=== PATIENT | male | born 1960 | race Caucasian/White ===

== ENCOUNTER 2019-06-10 07:15 | Day surgery (SDC) | payer OTHER, SELFPAY ==
[2019-06-10] VITALS (12 sets, daily range): BP systolic 113–146; BP diastolic 81–105; PULSE 73–101; RESP 10–19; TEMP 36.4–37.2; O2SAT 93–98; BMI 31.1
--- NOTE | 2019-06-10 08:39 | PM.HP.1 ---
History of Present Illness History of Present Illness Date Patient Seen: 06/10/19 Time Patient Seen: 08:39 Chief complaint: [id number] SCREENING COLONOSCOPY Narrative: Patient is gentleman here for screening colonoscopy. His last exam was 10 years ago. Patient History Medical History (Updated 06/10/19 @ 08:41 by Chris Garcia MD) Chronic back pain (Acute) Essential hypertension with goal blood pressure less than 130/85 (Acute) Sleep apnea (Acute) Surgical History (Updated 06/10/19 @ 08:41 by Chris Garcia MD) History of Thompson fundoplication (Acute) Family & Social History Social History: household members none Tobacco & Substance use: Smoking Status Never smoker alcohol intake frequency holiday/special occasion Substance Use Type does not use Meds Home Medications and Allergies Home Medications Medication Instructions Recorded Confirmed Type Oxycodone/Acetaminophen (Percocet 2 tab PO PRN #0 04/25/11 06/10/19 History 5-325 MG Tablet) omeprazole 2 tabs PO BID #0 04/25/11 06/10/19 History peg 3350-electrolytes 236 240 ml PO Q10M #4000 ml 06/05/19 06/10/19 Rx gram-22.74 gram-6.74 gram-5.86 gram solution Naprosyn 5,000 mg PRN 06/10/19 History lisinopril 10 mg DAILY 06/10/19 06/10/19 History Allergies Allergy/AdvReac Type Severity Reaction Status Date / Time No Known Drug Allergies Allergy Verified 06/10/19 07:58 Review of Systems Review of Systems ROS: Yes All systems reviewed with the patient and are negative except as otherwise documented Musculoskeletal Comments: Chronic back pain Exam Vital Signs (past 8 hours): - 06/10/19 07:49 Temperature 97.9 F Pulse Rate 101 H Respiratory Rate 17 Blood Pressure 146/95 H Pulse Oximetry 93 Oxygen Delivery Method Room Air Narrative Exam Narrative: Pleasant cooperative patient no apparent distress. Lungs are clear to auscultation. No rales or rhonchi. Heart regular rate and rhythm no murmur gallop. Abdomen is soft nontender without mass. Possible upper abdominal hernia in a area of a midline scar. Patient is alert and oriented x3. Assessment & Plan Assessment & Plan narrative: The patient for a screening colonoscopy. I have discussed the procedure with them. Risks of bleeding, perforation which would necessitate major operation, failure to find remove all lesions, the potential tattoo were all discussed. All questions were answered. They wished to proceed.
--- NOTE | 2019-06-10 08:43 | PM.PREOP ---
Pre-operative Note Interval Note History & Physical reviewed/Exam performed by Physician: Yes Changes to H&P: No ASA Class (for procedural sedation): III
[2019-06-10] MEDS: MIDAZOLAM 5 MG/5 ML VIAL IV (08:54)
[2019-06-10] MEDS: fentaNYL 250 MCG/5 ML INJ IV (08:55)
--- NOTE | 2019-06-10 08:55 | PM.OP.ENDO ---
Operative Date/Time/Diagnoses Date of procedure: 06/10/19 Time of procedure: 08:55 Pre-op diagnosis: Screening exam Post-op diagnosis: other (Procedure abandoned due to poor prep) Procedure & Clinicians Study performed: Flexible sigmoidoscopy Same procedure as scheduled: No Indications: Screening. Last exam 10 years ago Surgeon: Chris Garcia Procedure Notes SCOAP/Timeout: Performed Procedure in detail: Patient was placed in left lateral decubitus position underwent IV sedation directed by the surgeon consisting of fentanyl and Versed. Digital exam revealed an odd entrance to his anal canal. Was it a angle. His prostate is mildly enlarged. Scope was inserted and I immediately encountered stool lining the colon. I advanced to about 40 cm and there was no relief insight. It is very clear I was not going to get an adequate exam and therefore I banded the procedure. Patient should have a 2 day prep. Scope withdrawal time: Not applicable Sedation minutes: 8 Specimen(s): none sent Complications: none Post-procedure Recommendations: Other recommendation (Reschedule with a 2 day prep) Follow up: as needed Disposition: PACU
--- NOTE | 2019-06-10 09:33 | SUR.PHASEII ---
Patient denies pain/nausea. Tolerating po. Abdomen no-distended. Patient snoring loudly. Uses CPAP.
[2019-06-10] MEDS: SODIUM CHLORIDE 0.9% 1,000 ML 200 ML IV (09:51)
== END 2019-06-10 10:16 | disposition home or self-care (01) ==
PROVIDERS: PCP Internal Medicine; Referring Provider Specialist; Visit Provider Specialist
PROC: 0DJD8ZZ Inspection of Lower Intestinal Tract, Via Natural or Artificial Opening Endoscopic (ICD-10-PCS; CPT 45378; principal; 2019-06-10 08:45)
DX: Z12.11 Encounter for screening for malignant neoplasm of colon (principal); I10 Essential (primary) hypertension; G47.30 Sleep apnea, unspecified; N40.0 Benign prostatic hyperplasia without lower urinary tract symptoms
CPT/HCPCS: 45330; 99152; J2250; J3010

== ENCOUNTER 2019-10-13 09:14 | Day surgery (SDC) | payer OTHER, SELFPAY ==
[2019-10-13] VITALS (8 sets, daily range): BP systolic 116–159; BP diastolic 84–114; PULSE 73–82; RESP 11–16; TEMP 36.5–36.7; O2SAT 94–96; BMI 31.4
--- NOTE | 2019-10-13 10:08 | PM.HP.1 ---
History of Present Illness History of Present Illness Date Patient Seen: 10/13/19 Time Patient Seen: 10:09 Chief complaint: [id number] SCREENING COLONOSCOPY Narrative: The patient presents for colorectal sreening. They have never had any previous examination for such, he did have previous attempt at a colonoscopy which was aborted secondary day inadequate prep. No personal or family history of colon cancer. On further history denies any recent gastrointestinal symptoms. No nausea, vomiting, abdominal pain, loss of appetite, unexplained weight loss, change in bowel habits, diarrhea, constipation, melena, hematochezia, or bright red blood per rectum. Patient History Medical History Chronic back pain (Acute) Essential hypertension with goal blood pressure less than 130/85 (Acute) Sleep apnea (Acute) Surgical History History of Thompson fundoplication (Acute) Family & Social History Social History: household members significant other Tobacco & Substance use: Smoking Status Never smoker alcohol intake current alcohol intake frequency holiday/special occasion Substance Use Type does not use Meds Home Medications and Allergies Home Medications Medication Instructions Recorded Confirmed Type Oxycodone/Acetaminophen (Percocet 2 tab PO PRN #0 04/25/11 10/13/19 History 5-325 MG Tablet) Naprosyn 5,000 mg PO Q12HR 06/10/19 10/13/19 History lisinopril 10 mg DAILY 06/10/19 10/13/19 History cyclobenzaprine 10 mg PO TID PRN 10/13/19 10/13/19 History duloxetine 60 mg PO DAILY 10/13/19 10/13/19 History pantoprazole 40 mg PO BID 10/13/19 10/13/19 History sumatriptan succinate 25 mg PO Q2-4H PRN 10/13/19 10/13/19 History Allergies Allergy/AdvReac Type Severity Reaction Status Date / Time No Known Drug Allergies Allergy Verified 10/13/19 09:22 Review of Systems Review of Systems Narrative: A 10 point review of systems is negative except as noted in the HPI Exam Vital Signs (past 8 hours): - 10/13/19 09:31 Temperature 97.7 F Pulse Rate 82 Respiratory Rate 16 Blood Pressure 145/96 H Pulse Oximetry 96 Oxygen Delivery Method Room Air Narrative Exam Narrative: General-no acute distress, well nourished HEENT-moist mucous membranes, no scleral icterus Neck-supple, no lymphadenopathy Chest- non labored respirations, clear to auscultation bilaterally Cardiac-regular rate no peripheral edema Abdomen-soft, nontender, non distended Extremities-warm, well perfused Neurological-alert and oriented, no focal deficits Assessment & Plan Assessment and plan (1) Screening for colon cancer: Status: Acute Assessment & Plan narrative: The patient requires colorectal screening and colonoscopy is recommended. Technical details were discussed. Risks, benefits, alternatives explained. Risks including but not limited to myocardial infarction, aspiration, bleeding, pain, missed lesion, incomplete examination, need for further radiographic studies, colonic perforation, and need for major abdominal surgery were discussed. All questions were answered to their satisfaction, and they are in agreement with this plan. COVID-19 COVID-19 status: Result pending
[2019-10-13 10:20] LABS: COVID19 -Nasal RAPID Negative (Negative)
[2019-10-13] MEDS: MIDAZOLAM 5 MG/5 ML VIAL IV ×3 (10:26→10:35)
[2019-10-13] MEDS: fentaNYL 250 MCG/5 ML INJ IV ×3 (10:26→10:35)
[2019-10-13] MEDS: LABETALOL 20 MG/4 ML SYRINGE 5 MG IV (10:45)
--- NOTE | 2019-10-13 10:52 | PM.OP.ENDO ---
Operative Date/Time/Diagnoses Date of procedure: 10/13/19 Time of procedure: 10:52 Pre-op diagnosis: Screening colonoscopy Post-op diagnosis: same Procedure & Clinicians Study performed: Colonoscopy Same procedure as scheduled: Yes Indications: 59-year-old male no prior colonoscopy presents for routine screening Surgeon: Salty Francisco Procedure Notes SCOAP/Timeout: Performed Procedure in detail: Patient placed in left lateral decubitus position. Time out was performed. Procedural sedation was administered with Versed and Fentanyl. A rectal exam demonstrated no external hemorrhoids no internal masses. Colonoscopy scope was placed into the rectum and advanced through the colon to the cecum. The ileocecal valve was identified. The scope was then slowly withdrawn examining colon thoroughly in all directions. The colonoscopy was notable for the following 1. No masses polyps 2. Extensive saleh diverticulosis 3. Quality of prep poor Scope withdrawal time: 6 Sedation minutes: 26 Findings: diverticulosis Specimen(s): none sent Impression: Saleh diverticulosis Post-procedure Recommendations: Colonscopy in 10 years Disposition: same day surgery
== END 2019-10-13 11:37 | disposition home or self-care (01) ==
PROVIDERS: PCP Internal Medicine; Referring Provider Surgery; Visit Provider Surgery
PROC: 0DJD8ZZ Inspection of Lower Intestinal Tract, Via Natural or Artificial Opening Endoscopic (ICD-10-PCS; CPT 45378; principal; 2019-10-13 10:00)
DX: Z12.11 Encounter for screening for malignant neoplasm of colon (principal); I10 Essential (primary) hypertension; G47.30 Sleep apnea, unspecified; G89.29 Other chronic pain; K57.30 Diverticulosis of large intestine without perforation or abscess without bleeding
CPT/HCPCS: 45378; 87635; 99152; 99153; J2250; J3010

== ENCOUNTER → 2020-04-19 13:35 | Outpatient (CLI) | payer OTHER, SELFPAY ==
--- NOTE | 2020-04-19 | DI.MRI.S_ITS ---
PROCEDURE: MR KNEE LT WO CON INDICATIONS: Bilateral primary osteoarthritis of knee TECHNIQUE: Noncontrast sagittal PD fast spin echo and T2 fast spin echo with fat saturation, sagittal 3-D FLASH with fat saturation; coronal T1 spin echo and PD fast spin echo with fat saturation, and axial PD fast spin echo with fat saturation through the knee. COMPARISON: [facility], MR, MR KNEE LEFT WITHOUT CONTRAST, 10/30/2017, 15:42. FINDINGS: Image quality: Excellent. Menisci: Macerated circumferential medial meniscal tear involving the anterior horn body and posterior horn. There is partial extrusion. There is adjacent multiloculated appearing parameniscal cyst measuring approximately 1.4 x 0.8 cm image /. Lateral meniscus intact. Cruciate ligaments: Anterior cruciate ligament appears intact. Posterior cruciate ligament appears intact. Medial structures: There is medial bowing of the medial collateral ligament, with mild internal signal changes and no complete rupture. There is adjacent soft tissue edema. The appearance could reflect reactive changes to medial compartment pathology, versus low-grade sprain of the MCL. Pes anserinus tendons appear grossly unremarkable. Semimembranosus tendon appears intact. Lateral structures: The lateral collateral ligament demonstrates thickening and intrasubstance signal change in keeping with low grade sprain, statistically chronic, although technically age indeterminate. Biceps femoris tendon appears intact. Popliteus tendon grossly unremarkable. Iliotibial band appears intact. . Anterior structures: Quadriceps tendon distal tendinopathy and thickening. Medial and lateral patellofemoral ligaments intact. There is mild patellar tendinopathy. Prepatellar and superficial infrapatellar subcutaneous edema/fluid. Bones and cartilage: No focal marrow contusion or discrete low signal fracture line. Within the medial compartment, diffuse partial-thickness chondral loss without focal defect. Within the lateral compartment, diffuse partial-thickness loss of the femoral cartilage without focal defect. Within the patellofemoral compartment, full-thickness fissuring of the cartilage overlying the lateral patellar facet with subchondral cystic change and sclerosis. Areas of partial thickness cartilage loss overlying the median patellar ridge and medial patellar facet. Joint space: No joint effusion. No Prather's cyst. No specific evidence of intra-articular loose body. IMPRESSION: Grossly unchanged macerated circumferential medial meniscal tear with partial extrusion. Associated parameniscal cyst measuring 1.4 cm this appears smaller since the prior study from 10/30/17, versus de maida lesion. Adjacent MCL changes as above. Distal quadriceps and patellar tendinopathy. This appears mildly improved since the prior study. Tricompartmental joint degeneration as above. Minimal interval progression in the medial compartment since the prior study. Dictated by: Julian Gonzalez M.D. on 04/19/2020 at 15:31 Approved by: Julian Gonzalez M.D. on 04/19/2020 at 15:51
== END ==
PROVIDERS: PCP Internal Medicine; Referring Provider Internal Medicine; Visit Provider Orthopaedic Surgery
DX: M17.0 Bilateral primary osteoarthritis of knee (principal); S83.242A Other tear of medial meniscus, current injury, left knee, initial encounter
CPT/HCPCS: 73721

== ENCOUNTER → 2021-01-19 11:11 | Outpatient (CLI) | payer OTHER, SELFPAY ==
[2021-01-19 12:46] LABS: COVID19 -Nasal RAPID Negative (Negative)
== END ==
PROVIDERS: PCP Internal Medicine; Visit Provider Nurse Practitioner Family
DX: Z20.822 Contact with and (suspected) exposure to COVID-19 (principal)
CPT/HCPCS: 87635

== ENCOUNTER 2021-01-20 11:50 | Day surgery (SDC) | payer OTHER, SELFPAY ==
[2021-01-18 07:46] VITALS: BMI 33.2
[2021-01-20] VITALS (24 sets, daily range): BP systolic 114–156; BP diastolic 73–112; PULSE 72–114; RESP 12–19; TEMP 36.1–36.7; O2SAT 73–100; BMI 33.2
--- NOTE | 2021-01-20 06:00 | DI.RAD.S_ITS ---
PROCEDURE: XR KNEE LT 1TO2V INDICATIONS: postop prosthesis placement TECHNIQUE: 2 view(s) of the knee acquired. COMPARISON: [facility], CR, XR KNEE 4+ VIEWS LEFT, 11/17/2020, 8:10. FINDINGS: Bones: Patient is status post knee joint arthroplasty. Hardware components are in expected positions. Visualized bony structures are intact. Soft tissues: Overlying postoperative changes are noted. IMPRESSION: Expected immediate postoperative appearance of left knee medial unicondylar arthroplasty. Dictated by: Kash Gamble RRA Interpreted: Valentino Quinn MD on 01/20/2021 at 16:18 Transcribed by: SERA on 01/20/2021 at 16:18 Approved by: Valentino Quinn M.D. on 01/20/2021 at 17:18
--- NOTE | 2021-01-20 11:15 | PM.PREOP ---
Pre-operative Note COVID-19 COVID-19 status: Negative Interval Note History & Physical reviewed/Exam performed by Physician: Yes Changes to H&P: No
[2021-01-20] MEDS: LACTATED RINGERS 1,000 ML 42 ML IV ×2 (12:05→13:41)
[2021-01-20] MEDS: VANCOMYCIN 1,000 MG/200 ML PIGGYBACK 200 MG IV (12:05)
[2021-01-20] MEDS: CELECOXIB 200 MG CAPSULE PO (12:06)
[2021-01-20] MEDS: ACETAMINOPHEN 325 MG TABLET 975 MG PO (12:06)
[2021-01-20] MEDS: PREGABALIN 75 MG CAPSULE PO (12:06)
[2021-01-20] MEDS: CEFAZOLIN 3 GM IN 0.9 % NACL 100 ML IV (12:45)
[2021-01-20] MEDS: BUPIVACAINE 0.25% (PF) 60 ML, EPINEPHrine 0.3 MG INJ (12:52)
[2021-01-20] MEDS: BUPIVACAINE LIPOSOME 266 MG/20 ML VIAL INJ (12:53)
[2021-01-20] MEDS: TRANEXAMIC ACID 1,000 MG VIAL 1000 MG INJ ×2 (12:54→13:48)
--- NOTE | 2021-01-20 12:59 | SUR.OPER ---
Supine on padded OR bed. Pillow under head, arms secured on padded armboards <90 degree abduction. Safety belt across torso. Non-operative leg secured with tape over blanket over lower leg. Operative leg secured in DeMayo/Henry/Nathe positioner. Foam padded brace at thigh of operative leg.
--- NOTE | 2021-01-20 14:32 | P.OP_ITS ---
Operative Date/Time/Diagnoses Date of procedure: 01/20/21 Time of procedure: 12:30 Pre-op diagnosis: Left knee medial compartment arthritis Post-op diagnosis: same Procedure & Clinicians Procedure: Left knee medial unicompartment replacement Same procedure as scheduled: Yes Indications: The patient has had progressively worsening left knee pain with radiographic changes consistent with arthritis. Non-operative management has failed and the patient has requested medial unicompartment knee replacement. The risks, benefits and alternatives to surgery were discussed with the patient prior to proceeding. Risks discussed included, but were not limited to, failure to relieve pain, stiffness, infection, nerve damage, deep venous thrombosis, pu lmonary embolism, stroke, coma, heart attack, permanent paralysis and , as well as the potential need for eventual revision of the prosthetic. Surgeon: Anahy Iglesias Industrial Refrigeration Mechanic: Kaylan Winter Anesthesia Type: General Operative Notes Findings: Severe medial compartment osteoarthritis, fairly normal appearing patellofemoral joint, adequate bone, adequate stability Closure Type: primary Specimen(s): none sent Prosthetic devices, grafts, tissues, transplants, or devices: Journey 2 unicompartment replacement size 7 tibia, size 7 femur, +8 poly Estimated Blood Loss (mL): 250 Blood products transfused: none Tourniquet time (min): 56 Procedure in detail: The patient was seen in the pre-operative area, where the left knee was identified as the operative site and this was marked with my initials. The patient received pre-operative antibiotics, and was taken to the operating room and placed on the operative table in the supine position. After satisfactory anesthesia, a time study technician out was performed. The left leg was encircled with a tourniquet about the proximal thigh, and the leg was prepared from the toes to the tourniquet with ChloroPrep in the usual fashion and draped through sterile drapes. The leg was elevated and exsanguinated with Eschmark bandage and the tourniquet inflated to [250] mmHg pressure. The knee was approached through an approximately 10 cm incision medial parapatella incision and carried into the knee through a medial parapatellar arthrotomy. The osteophytes and medial meniscus were removed. Next, a small amount of the anterior tibial boss was carefully resected with a saw. The guide was placed along the medial joint line. It was meticulously adjusted to make sure there was appropriate slope that it was at the joint line and then was pinned to the tibia and the femur. The medial femoral condylar cut was made in extension. The tibial cut was made in flexion. The bone was meticulously irrigated with normal saline. Small amount of additional meniscus was resected posterior capsule was checked and injected with Marcaine. The extension gap was carefully checked with an 8 mm gap administrator of home health was noted that it fit well. A small number of additional osteophytes were resected. The tibia was a size [7]. It was noted that it fit without overhang. The femur was sized and it was noted to be a [7]. The appropriate cutting guide was pinned into place and carefully positioned on the femoral condyle. Drill holes were placed. The tibia was pinned into place and drill holes were made. Trial reduction with the appropriate poly showed full range of motion and good stability at 0, 45. and 90? with normal tracking of the components without edge loading. The bone was meticulously irrigated and dried. Additional Marcaine was injected. The posterior capsule was injected with 0.25% Marcaine mixed with 20 ml Exparel for post-operative pain control. The remainder of this mixture was injected into the capsule and subcutaneous tissues during cement curing. Range of motion was [0-130], with good stability throughout the range. The trials were then remove. The cement was as applied and the final prosthetics placed. Excess cement was removed during and after cement curing. A brief medial compartment Betadine soak was performed. After confirming there was no extruded cement posteriorly, the final tibial insert was placed. The knee was copiously irrigated and the tourniquet deflated. Hemostasis was obtained. The capsule was closed with interrupted vicryl. The subcutaneous tissue was closed with barbed sutures. The skin with a running 3-0 V-Lock suture and surgical glue. An Aquacel Ag dressing was applied and the patient was taken to recovery having tolerated the procedure well. Complications: none Post-operative Condition: stable Disposition: Acute Care Plan for aftercare: The patient will be maintained on a standard unicompartment knee replacement protocol with weight bearing as tolerated. The patient will receive aspirin and sequential compression devices for DVT prophylaxis. The patient will be discharged home when safe for the home environment.
[2021-01-20] MEDS: KETOROLAC 30 MG/ML VIAL IV (15:01)
[2021-01-20] MEDS: OXYCODONE/ACETAMINOPHEN 5/325 TABLET 1 TAB PO (15:38)
--- NOTE | 2021-01-20 15:59 | SUR.PHASEI ---
Spoke w pt's chosen contact, Angie, to update, her, she's aware he will be admitted and aware we will call her when we have a room.
--- NOTE | 2021-01-20 18:04 | SUR.PHASEI ---
Pt admitted for observation, CPAP in place on 5LO2, VSS, A/O x 4, transported to 211 in stable condition.
[2021-01-20] MEDS: LACTATED RINGERS 1,000 ML 100 ML IV (18:18)
[2021-01-20] MEDS: OXYCODONE IR 10 MG TABLET PO (19:33)
[2021-01-20] MEDS: ASPIRIN EC 81 MG TABLET PO (20:53)
[2021-01-20] MEDS: PANTOPRAZOLE DR 40 MG TABLET PO (20:53)
[2021-01-20] MEDS: ACETAMINOPHEN 325 MG TABLET 650 MG PO (20:53)
[2021-01-20] MEDS: IBUPROFEN 400 MG TABLET PO (20:54)
[2021-01-20] MEDS: DOCUSATE 100 MG CAPSULE PO (20:54)
[2021-01-20] MEDS: CEFAZOLIN 1 GM VIAL 2 GM IV (20:56)
[2021-01-21] VITALS: BP 140/93; PULSE 88; RESP 18; TEMP 37.2; O2SAT 94
[2021-01-21] MEDS: IBUPROFEN 400 MG TABLET PO ×4 (00:46→12:32)
[2021-01-21] MEDS: OXYCODONE IR 5 MG TABLET PO ×4 (01:18→12:32)
--- NOTE | 2021-01-21 01:46 | PC.NURSE ---
Addendum entered by Cassidy Barnett R.N. 01/21/21 02:28: Placed on CPAP with 2L/min oxygen bled in and sat now at 97% Original Note: Patient is alert and oriented. Breath sounds CTA with oxygen at 3.5L/min per NC at start of shift but when asleep sat is dropping down into 80's so is currently at 5L/min with sat of 96%; patient states at home he uses CPAP for sleep with oxygen bled in at 2L/min. Noted CPAP is in room so next time patient is awake with have him put CPAP on. HRR. BP elevated at 140/93 consistent with previous readings. Denied nausea. BT present but denied passing flatus as yet. Is voiding per urinal; denied dysuria, frequency or urgency. Is able to move self in bed. Gait not assessed at this time but per evening RNRakesh, patient is up to bathroom with SBA + walker. Aquacel dressing covered with lima wrap to left knee is CDI. CMS is intact. Is wearing bilateral calf SCD's. At time of assessment patient denied pain but was medicated with scheduled Ibuprofen and then at 0115 patient stated pain had increased to 4/10 so was medicated with oxycodone and is now asleep. Fall risk score is moderate and bed alarm is activated.
[2021-01-21 02:30] VITALS: O2SAT 97
[2021-01-21 04:00] VITALS: BP 129/90; PULSE 86; RESP 19; TEMP 37.4; O2SAT 94
[2021-01-21] MEDS: LACTATED RINGERS 1,000 ML 100 ML IV (04:43)
[2021-01-21] MEDS: CEFAZOLIN 1 GM VIAL 2 GM IV (04:44)
[2021-01-21 06:21] LABS: Hemoglobin 13.6 g/dL (13.5-17.5)
--- NOTE | 2021-01-21 07:44 | PM.DS.1 ---
History of Present Illness History of Present Illness Date Patient Seen: 01/21/21 Time Patient Seen: 07:44 Chief complaint: Left knee pain s/p left medial Uni arthroplasty Narrative: The patient is complaining of qjva-df-[id number] left knee pain this morning. He denies any new numbness or tingling. No fevers, chills, night sweats. No nausea or vomiting. Overall he is feeling well, and like to be discharged home today when he is cleared by PT. Discharge Providers Provider Date of admission: 01/20/21 18:32 Discharge Date: 01/21/21 Primary care physician: Brandy Stahl MD Consults: 01/20/21 06:00 Consult to Anesthesiology Routine Comment: Consulting Provider: Anesthesiologist Reason for consultation: Regional block for post operative pain control 01/20/21 12:10 Consult to Respiratory Therapy Evaluate & Treat Comment: Physician Instructions: Evaluate and treat 01/20/21 18:04 Consult to Discharge Planning Routine Comment: Consult to Physical Therapy Evaluate & Treat Comment: Physician Instructions: postop TKA protocol Consult to Respiratory Therapy Evaluate & Treat Comment: severe sleep apnea Physician Instructions: Evaluate and treat Discharge provider: Kaylan Winter PA-C Summary Hospital Course Discharge Diagnosis: Left knee medial compartment arthritis Hospital Course: Date of procedure: 01/20/21 Time of procedure: 12:30 Procedure & Clinicians Procedure: Left knee medial unicompartment replacement Same procedure as scheduled: Yes Indications: The patient has had progressively worsening left knee pain with radiographic changes consistent with arthritis. Non-operative management has failed and the patient has requested medial unicompartment knee replacement. The risks, benefits and alternatives to surgery were discussed with the patient prior to proceeding. Risks discussed included, but were not limited to, failure to relieve pain, stiffness, infection, nerve damage, deep venous thrombosis, pulmonary embolism, stroke, coma, heart attack, permanent paralysis and , as well as the potential need for eventual revision of the prosthetic. Surgeon: Anahy Iglesias Preparation Plant Supervisor: Kaylan Winter Anesthesia Type: General Operative Notes Findings: Severe medial compartment osteoarthritis, fairly normal appearing patellofemoral joint, adequate bone, adequate stability Closure Type: primary Specimen(s): none sent Prosthetic devices, grafts, tissues, transplants, or devices: Journey 2 unicompartment replacement size 7 tibia, size 7 femur, +8 poly Estimated Blood Loss (mL): 250 Blood products transfused: none Tourniquet time (min): 56 Status at Discharge Cognitive/behavioral status at discharge: oriented Functional status at discharge: uses cane/walker Overall status at discharge: patient is progressing back to baseline Exam Vital Signs (past 8 hours): - 01/21/21 00:00 01/21/21 02:30 01/21/21 04:00 Temperature 98.9 F 99.3 F Pulse Rate 88 86 Respiratory Rate 18 19 Blood Pressure 140/93 H 129/90 Pulse Oximetry 94 97 94 Oxygen Delivery Method Nasal Cannula Oxygen Flow Rate 2 Narrative Exam Narrative: Pleasant 60-year-old male, resting comfortably in bed, no acute distress. Bilateral lower extremity motor functions are grossly intact. Sensation is grossly intact to light touch in bilateral lower extremities. Dressing is clean, dry, intact. Bilateral calves are soft, nontender palpation. Objective Labs Result Diagrams: 01/21/21 05:54 Labs: Laboratory Results - last 24 hr 01/21/21 05:54 Hgb 13.6 Hct 41.0 PFSH Medical History Cota's esophagus Chronic back pain Essential hypertension with goal blood pressure less than 130/85 GERD (gastroesophageal reflux disease) Headache, migraine Sleep apnea Surgical History History of lumbar discectomy (04/25/11) History of Thompson fundoplication (1995) Hx of hernia repair Hx of sinus surgery Social History household members: significant other Smoking Status: Never smoker alcohol intake: current Discharge Assessment & Plan Assessment and Plan Plan of Treatment: Stable status post left knee medial unicompartmental arthroplasty -mobilize with PT. Weightbearing as tolerated with front wheel walker -continue with current DVT regimen and pain regimen. -plan on DC home today once cleared by PT. Discharge Plan Discharge Plan Patient Disposition: Home Discharge orders & Medications Prescriptions: New oxycodone 5 mg tablet 5 mg PO Q6H PRN (Reason: pain) Qty: 30 RF: 0 Continued lisinopril 10 mg Tablet 10 mg PO DAILY Qty: 0 RF: 0 Naprosyn 500 mg 500 mg PO Q12HR RF: 0 cyclobenzaprine 10 mg Tablet 10 mg PO TID PRN (Reason: Pain (Scale Score 1-3)) RF: 0 sumatriptan succinate 25 mg Tablet 25 mg PO Q2-4H PRN (Reason: Migraine Headache) RF: 0 pantoprazole 40 mg Tablet,Delayed Release (Dr/Ec) 40 mg PO BID RF: 0 duloxetine 60 mg Capsule,Delayed Release(Dr/Ec) 60 mg PO DAILY RF: 0 tamsulosin 0.4 mg Capsule 0.4 mg PO DAILY RF: 0 Follow up/Referrals: Brandy Stahl MD [Primary Care Provider] - Anahy Iglesias MD [Physician] - (10-14 days for postoperative visit) Diet/Activity/Treatments Diet: Diet as Tolerated Activity: Walk multiple times a day. Work on knee range of motion and strengthening. Use a cane if needed to prevent falls. Other treatments: Medications: -Aspirin 81mg twice daily x6 weeks to prevent blood clots. -OTC Tylenol 500 mg 1 tablet every 4 hours as needed for pain/fever. Max 6 tablets per day. -Ibuprofen 400 mg 1 tablet every 4 hours as needed for pain/inflammation. Max 2,400 mg per day. -Oxycodone 5 mg take 1-2 tablets every 4 hours as needed for moderate-severe pain (narcotic pain medication). -Vistaril (hydroxyine) 25mg 1 tab every 4 hours as needed for spasms/pain/nausea. -As needed medications: -Ducolax and /or MiraLax as needed for constipation from narcotic pain medications. -Pepcid AC as needed for stomach upset (usually from aspirin or ibuprofen). Dressing/Wound care: -Remove the Jamie wrap 48 hours after surgery. -Keep Aquacell dressing in place until postoperative follow-up office visit. -Okay to shower. Keep wound out of direct water stream. No soaking or submerging until all the scabs fall off (approximately 6 weeks). -Please call the office if dressing becomes wet, soiled, or saturated. Activities: -Weight-bearing as tolerated. Use front wheeled walker, and progress to cane when safe. -Continue with home exercises as directed by your physical therapist. -Elevate ?toes above the nose if you have significant swelling in your lower leg. (A wedge pillow is easiest.) -Ice your incision as needed for pain/inflammation/swelling. Protect your skin with a folded pillowcase. Follow-up: -Follow-up with your surgeon or PA in the office in 10-14 days after surgery. -Follow-up with your surgeon 6 weeks postoperatively. Call the office if you have chest pain, shortness of breath, significant swelling that will not resolve with elevating, fever over 101?, significantly worsening pain. [facility]: [phone] Skin/Wound/Dressing Care Skin care: Okay to shower. Report to your healthcare provider any signs of infection, such as:: chills, fever, night sweats, increased pain, unusual drainage and unusual redness Dressing: Remove Jamie wrap tomorrow. Leave other dressing on. Other wound treatment: Ice multiple times a day. Visit Report/Discharge Packet Instructions: DI for Knee Replacement, DI for Constipation, How to Prevent Falls Stand Alone Forms: Surgery Discharge Discharge Data Primary Care Provider: Brandy Stahl VTE Deep Vein Thrombosis/Pulmonary Embolism Present on Admission: No
[2021-01-21 09:06] VITALS: BP 151/102; PULSE 97; RESP 17; TEMP 36.7; O2SAT 95
--- NOTE | 2021-01-21 09:08 | CM.DANOTE ---
DCP: Case received, EMR reviewed and met with patient. Significant other, Angie, was also at bedside. Introduced self and role. Was able to obtain information regarding patient's baseline activity status prior to surgery. DCP assessment completed with information currently available. Patient is a 60 year old male who admitted yesterday afternoon to the care of the orthopedic team. PCP: Dr. Stahl. Payer: confirmed: Raghavendra Alcantar. Patient came to the hospital for a surgical procedure. He had left medial knee arthroplasty. Patient has history of osteoarthritis of his left knee. Met with patient briefly in his room, he had CPAP in place laying in bed, Elliott, significant other, was at bedside. Confirmed that they both reside in [place]. Patient is independent at his baseline. He is retired , [place] service. According to orthopedic notes, he was given information to go on line for [place] paperwork, for he would need to be off between 4-6 weeks. Patient stated that he has about 10 stairs at home, they live in a split level home. P: Patient has discharge orders for home today, but will need to work with P.T. prior to discharge, and stair training. Michelle Cr RN/Magento Developer Discharge Planning/Care Management CM Discharge Assessment Start: 01/21/21 09:06 Freq: Status: Active Protocol: Document 01/21/21 09:06 (Rec: 01/21/21 09:08 [id number]) Discharge Planning Assessment Assigned Combination Machine Tool Operator Michelle Cr RN/Magento Developer Advance Directives? Yes Advance Directives on File No History Provided By Patient,Medical Record Household Members significant other Type of transporation used prior to Drives own vehicle admit Independent with ADL's Yes Is patient alert and oriented? Yes Caregiver for Another No Patient/Family Preference OP PT Therapy Barriers to Discharge No Discharge Plan Home Transportation Arrangement Spouse Referrals Initiated None needed Whiteboard Updated in Patient Room with Yes name and ext. # of Combination Machine Tool Operator Review Status In Process Next Review Type Continued Stay Review Pre-Anesthesia Assessment Start: 01/18/21 07:46 Freq: Status: Complete Protocol: Document 01/18/21 07:46 CAB (Rec: 01/18/21 08:37 CAB [id number]) Pre-Anesthesia Assessment Patient Information Reviewed Via Chart Review H&P Completed Within 30 Days Yes Comment Pre-op labs not identified, COVID screen @ 01/19/21 Primary Care Provider Adele Stallings Seen Specialist in Last 12 Months Yes Specialist Seen Orthopedist Primary Language Stateless Forensic Technician Required No Height 6 ft 5 in Weight 280 lb Body Mass Index (BMI) 33.2 Hx Anesthesia Reactions No Hx Family Anesthesia Reaction No Hx Malignant Hyperthermia No Hx Blood Transfusions No Hx Blood Transfusion Reaction No Anesthesia Review Requested No alcohol intake never Smoking Status Never smoker Substance Use Type does not use Pain Present Pain Reported Musculoskeletal Symptoms Joint Pain Patient is completely paralyzed or No completely immobile Mental Status Oriented to own ability Hx Sleep Apnea Yes: CPAP compliance unknown CPAP/BIPAP use prescribed and used routinely Currently Taking a Beta [place] No Anti-Coagulant Therapy No Has a Cash Register Servicer No Cardiac Testing No Hx Pacemaker/ICD No Pacemaker Rep Required? No Urinary Catheter Present No Hx Urinary Self Catheterization No Diabetes No Presence of External or Internal Medical No Devices Lives With significant other Patient Discharge Plan Description Return Home Advance Directives? Yes Power of Packaging Mechanic Yes Power of Packaging Mechanic Name jessi crandall
[2021-01-21] MEDS: CYCLOBENZAPRINE 10 MG TABLET PO (09:29)
[2021-01-21] MEDS: TAMSULOSIN 0.4 MG CAPSULE PO (09:30)
[2021-01-21] MEDS: DULOXETINE 30 MG CAPSULE 60 MG PO (09:30)
[2021-01-21] MEDS: PANTOPRAZOLE DR 40 MG TABLET PO (09:30)
[2021-01-21] MEDS: ACETAMINOPHEN 325 MG TABLET 650 MG PO ×2 (09:30→12:31)
[2021-01-21] MEDS: DOCUSATE 100 MG CAPSULE PO (09:30)
[2021-01-21] MEDS: lisinopriL 10 MG TABLET PO (09:30)
[2021-01-21] MEDS: ASPIRIN EC 81 MG TABLET PO (09:31)
[2021-01-21 09:35] VITALS: O2SAT 96
--- NOTE | 2021-01-21 10:45 | PT.IIE ---
Current Diagnoses Bilateral primary osteoarthritis of knee (01/20/21) Surgery Performed Operation Date: 01/20/21 15:30 Actual Procedures p Unicompartment Knee Arthroplasty(Left) - Anahy Iglesias MD Medical History (Last Reviewed 01/21/21 @ 07:46 by Kaylan Winter PA-C) Cota's esophagus Chronic back pain Essential hypertension with goal blood pressure less than 130/85 GERD (gastroesophageal reflux disease) Headache, migraine Sleep apnea Physical Therapy Inpatient Evaluation/Re-Eval M1 PT/OT-IP Prior Functional Status Start: 01/21/21 12:49 Freq: NEEDED Status: Active Protocol: Document 01/21/21 10:45 AB (Rec: 01/21/21 13:01 AB [id number]) Medical Review Prior Functional Status Medical History Reviewed Yes Communication able to make needs known Mobility and Gait pt stated that he is independent with all mobilities and ambulation without AD Social History Household Members significant other Living Arrangements House Number of Floors (Floors) 3 or More Floors Number of Stairs To Enter/Railing? split level house 1 platform step to enter; 6 steps R rail ascending to bedroom level Home Environment High Toilet,Tub/Shower Home Equipment Front Wheel Walker,Straight Cane,Crutches,Hand Held Shower Employment Status [employer] Employed M2 PT-IP Current Condition Start: 01/21/21 12:49 Freq: NEEDED Status: Active Protocol: Document 01/21/21 10:45 AB (Rec: 01/21/21 13:01 AB [email or web address]) Physical Therapy Current Condition Current Condition Evaluation Date 01/21/21 Treatment Diagnosis s/p L medical uni knee; difficulty in walking Onset Date 01/20/21 M3 PT-IP Subjective Start: 01/21/21 12:49 Freq: NEEDED Status: Active Protocol: Document 01/21/21 10:45 AB (Rec: 01/21/21 13:01 AB [email or web address]) Subjective Physical Therapy Visit Type Type Initial Evaluation Visit Start Time 10:45 Visit Stop Time 11:35 Total Visit Minutes 50 Number of COMMUNITY SERVICE SPECIALIST Visits 0 Physical Therapy Visit Comments Patient Comments agreeable to do PT Therapy Pain Assessment Pain When Pain Assessed At Rest Pain Present Pain Present Pain Reported Location Left Knee Intensity 2 Scale Used Numeric (0 - 10) Pain Management Techniques Apply Cold,Elevation, Modification of Treatment,Re- positioning,Timing of Activity with Medications M4 PT-IP Mobility and Gait Start: 01/21/21 12:49 Freq: NEEDED Status: Active Protocol: Document 01/21/21 10:45 AB (Rec: 01/21/21 13:01 AB [id number]) PT-Bed Mobility Assessment Supine to Sit Supine to Sit Standby Assistance PT-Transfer Assessment Sit to and From Stand Sit to and from Stand Standby Assistance,Contact Guard Assistance,1 Person Assistance,Use of Upper Extremities Equipment Transfer Assistive Device Gait Belt,Front Wheeled Walker Orthotic/Prosthetic Devices or Brace: No Transfers Transfer Destination Chair Transfer Technique ambulated Transfer Ability Level of Assist Standby Assistance,Contact Guard Assistance,1 Person Assistance,Use of Upper Extremities Comments Mobility Comments pt completed supine to sit SBA . able to sit on EOB SBA. completed sit to stand CGA and ambulated ~ 12 ft to chair using FWW CGA. caregiver training conducted. educated spouse on how to use safety belt and how to assist pt. spouse was able to put safety belt on and assisted pt with sit to stand and ambulation in the hallway using fWW ~ 125 ft SBA to CGA. stair climbing training: educated pt on how to go up/ down platform step using FWW and spouse assist pt. completed safely. pt completed up/down 3 steps using R rail with spouse assisting CGA. pt ambulated back to the room. agreed to sit on the chair. call light and table placed within reach. ice pack provided. Gait Assessment Gait Gait Assistance Required: Standby Assistance,Contact Guard Assist Distance (Feet) 125 Able to Maintain Weight Bearing Status Yes During Gait Assistive Devices Assistive Device Gait Belt,Front Wheeled Walker Orthotic/Prosthetic Devices or Brace: No Gait Deviations General Gait Pattern Antalgic,Decreased Stride Length,Decreased Feet Clearance Factors Limiting Gait Function Factors Limiting Gait Function Decreased Activity Tolerance, Decreased Strength,Limited Range of Motion,Pain,Poor Balance,Poor Safety Awareness Stair Climbing Assessment Evaluation Level of Assist On Stairs Contact Guard Assistance Devices Stair Climbing Assistive Devices Front Wheel Walker,Right Railing Technique/Endurance Stair Climbing Direction Ascend and Descend Stair Climbing Technique Step to Step Number of Steps Climbed 3 Query Text: Stair Climbing Set # Repetitions (reps) 1 Comments Stair Climbing Comments pls refer to mobility section for details PT-Balance Assessment Sitting Balance and Reactions Static Sitting Balance Ability Good Dynamic Sitting Balance Ability Good Standing Balance and Reactions Static Standing Balance Ability Fair Dynamic Standing Balance Ability Fair Device Used FWW M5 PT-IP Objective Assessments Start: 01/21/21 12:49 Freq: NEEDED Status: Active Protocol: Document 01/21/21 10:45 AB (Rec: 01/21/21 13:01 [email or web address]) Orientation Orientation/Cognition Level of Alertness Alert Orientation Name,Place,Situation Language Function Ability No Deficits Noted Safety Awareness Understands Safety Issues Memory Description No Deficits Noted Gross Range of Motion Lower Extremity ROM Impairments L knee flexion: ~ 90 deg L knee extension: lacking ~ 20 deg to 0 Strength Lower Extremity Strength Assessment Left Impaired Hip 4-/5 Knee 3+/5 Coordination Assessment Gross Coordination Gross Coordination WNL Sensation Assessment Sensation Gross Sensation WNL Muscle Tone Muscle Tone WNL Yes M6 PT-IP Treatment Start: 01/21/21 12:49 Freq: NEEDED Status: Active Protocol: Document 01/21/21 10:45 AB (Rec: 01/21/21 13:01 [email or web address]) Physical Therapy Treatment Education Education Provided Precautions,Weight Bearing Status,Post-Op Packet,Safety M7 PT-IP Assessment and Plan Start: 01/21/21 12:49 Freq: NEEDED Status: Active Protocol: Document 01/21/21 10:45 AB (Rec: 01/21/21 13:01 [facility] PT Summary Assessment and Plan Potential Rehabilitation Potential Good Status of Condition at Evaluation Stable Summary Impairments Pain,ROM,Strength,Balance, Coordination,Sensation,Tone, Cognition,Bed Mobility, Transfers,Gait,Activity Tolerance Assessment Summary pt requiring SBA to CGA with mobility using FWW. caregiver training conducted and spouse was able to assist pt safely with ambulation and stair climbing. pt plans to go home and has outpt PT set up. Goals Bed Mobility Goal Independent Transfer Goal Independent,Front Wheeled Walker Gait Goal Independent,Front Wheel Walker Gait Distance 250 Other Goals ambulation using SPC 200 ft SBA up/down platform set using FWW mod I up/down 6 steps R rail ascending mod I Days to Meet Goals 5 Frequency of Treatment Frequency Of Treatment Twice a Day Treatment Plan Physical Therapy Treatment Plan Bed Mobility Training,Transfer Training,Gait Training, Therapeutic Exercise,Balance Retraining,Post Op Education, Discharge Planning,Hot or Cold Pack,Neuromuscular Re-ed, Coordination Retraining,Manual Therapy Weight Bearing Status Weight Bearing Status Weight Bear as Tolerated Allowed Weight Bearing Amount (enter % LLE WBAT or #) (%) Recommendations To Nursing Amount of Assist Needed 1 Person Assist Discharge Recommendations PT Discharge Recommendations Home with Assistance, Outpatient PT Transportation Needs at Discharge Private Vehicle
[2021-01-21 11:23] VITALS: BP 140/94; PULSE 90; RESP 18; TEMP 36.6; O2SAT 96
--- NOTE | 2021-01-21 14:20 | PC.NURSE ---
Discharge: Pt feels ready to d/c to home. Seen by MD and given instructions. Seen by PT and passed as safe to go home. Wanted a copy of his op report - same given. Rx given. Tolerates diet w/out problems. Vds w/out diff. Po pain meds are eff. Jamie wrap over aquacel is intact. Instructed on taking low dose aspirin twice daily. Reviewed d/c packet and same understood. Questions answered. Pt d/c home via auto with
== END 2021-01-21 13:00 | disposition home or self-care (01) ==
LOC: OR 18:32 → AC 01-21 07:43
PROVIDERS: PCP Internal Medicine; Referring Provider Orthopaedic Surgery; Visit Provider Orthopaedic Surgery
PROC: (CPT 27446; principal; 2021-01-20 15:30)
DX: M17.12 Unilateral primary osteoarthritis, left knee (principal); E66.9 Obesity, unspecified; I10 Essential (primary) hypertension; K21.9 Gastro-esophageal reflux disease without esophagitis; G47.33 Obstructive sleep apnea (adult) (pediatric); Z68.32 Body mass index [BMI] 32.0-32.9, adult
CPT/HCPCS: 27446; 36415; 73560; 85014; 85018; 97161; 97530; C1776; C9290; J0171; J0690; J1100; J1170; J1885; J2250; J2405; J2704; J3010

== ENCOUNTER → 2021-04-19 17:16 | Outpatient (CLI) | payer OTHER, SELFPAY ==
[2021-01-20 18:39] VITALS: BMI 33.2
[2021-04-19 17:50] LABS: COVID19 -Nasal RAPID POSITIVE (Negative)
== END ==
PROVIDERS: PCP Internal Medicine; Referring Provider Student in an Organized Health Care Education/Training Program; Visit Provider Student in an Organized Health Care Education/Training Program
DX: U07.1 COVID-19 (principal)
CPT/HCPCS: 87635

== ENCOUNTER → 2022-06-21 18:37 | Outpatient (CLI) | payer OTHER, SELFPAY ==
[2021-01-20 18:39] VITALS: BMI 33.2
--- NOTE | 2022-06-21 | DI.MRI.S_ITS ---
PROCEDURE: MR LUMBAR SPINE WO CON INDICATIONS: LUMBAR DISC DISEASE TECHNIQUE: Noncontrast sagittal T1 spin echo and T2 fast echo, sagittal STIR, and T2 fast spin echo through the lumbar spine. In cases with scoliosis, additional coronal T2 fast spin echo may be performed. COMPARISON: [facility], , L-SPINE WITHOUT CONTRAST, 03/28/2017, 19:58. FINDINGS: Image quality: Excellent. Alignment and Curvature: There is normal bony alignment. Bone Marrow: Marrow is of normal overall signal. No acute vertebral body compression fractures. Spinal Cord: Conus medullaris terminates at the L1-L2 level. Visualized cord demonstrates normal signal and size. Paraspinous Soft Tissues: No paravertebral masses. T12-L1: Normal appearance. L1-L2: Mild facet arthropathy. No canal stenosis or foraminal stenosis. L2-L3: Stable findings. Mild disc bulge. Mild facet hypertrophy. No canal stenosis or foraminal stenosis. L3-L4: Stable findings. Mild disc bulge. Mild facet hypertrophy. Epidural lipomatosis. Canal stenosis. No significant foraminal stenosis. L4-L5: Stable findings. Disc bulge. At least moderate facet hypertrophy. Epidural lipomatosis. Hhoz-cm-kllfmfew canal stenosis. Tdwg-bw-dhmsimsd bilateral foraminal stenosis. L5-S1: Slight interval increase in disc height loss, severe. Minimal disc bulge. Facet hypertrophy. No canal stenosis. Mild bilateral foraminal stenosis. IMPRESSION: 1. Relatively stable examination. 2. Multilevel facet arthropathy. 3. Qzoh-ke-azpuxdwg canal stenosis at L4-L5. Dictated by: Kevin Perez M.D. on 06/22/2022 at 12:12 Approved by: Kevin Perez M.D. on 06/22/2022 at 12:17
== END ==
PROVIDERS: PCP Internal Medicine; Referring Provider Orthopaedic Surgery Orthopaedic Surgery of the Spine; Visit Provider Orthopaedic Surgery Orthopaedic Surgery of the Spine
DX: M48.061 Spinal stenosis, lumbar region without neurogenic claudication (principal); M47.816 Spondylosis without myelopathy or radiculopathy, lumbar region; M51.9 Unspecified thoracic, thoracolumbar and lumbosacral intervertebral disc disorder
CPT/HCPCS: 72148